=== PATIENT | male | born 1980 | race Caucasian/White ===

== ENCOUNTER 2023-05-27 15:31 | Emergency (ER) | payer BC ==
[2023-05-27 17:01] VITALS: BP 124/78; PULSE 77; RESP 18; TEMP 99; BMI 29.8
== END 2023-05-27 17:05 | disposition home or self-care (01) ==
LOC: FER 15:31
DX: J06.9 Acute upper respiratory infection, unspecified (principal); R05.9 Cough, unspecified; Z20.822 Contact with and (suspected) exposure to COVID-19
CPT/HCPCS: 0241U-QW; 71046-TC-FY; 99284-25